=== PATIENT | male | born 1940 | race Caucasian/White ===

== ENCOUNTER → 2016-11-02 | Outpatient (CLI) | payer MEDICARE, OTHER ==
[~2016-11-02] MED LIST: AMLO5TAB2 PO; ASPI-1085 PO; ASPI-611 PO; CHOL100034 PO; DOCU-168 PO; DOXA8TAB PO; DOXA8TAB2 PO; INSU100V8 SQ; LISI-127 PO; LISI40TA4 PO; METF-200 PO; METF10002 PO; METO-482 PO; METO25TA41 PO; OXYC1TAB8 PO; POTA20TA87 PO; SIMV20TA89 PO; SIMV40TA2 PO; SITA100T12 PO; TRIA15OI6 TOP; WARF2.5T73 PO; WARF5TAB6 PO; WARF5TAB76 PO; [UNRECOGNIZED DRUG - CODE] PO
--- NOTE | 2016-11-02 10:38 | DI ---
Indication: ITS.REASON: R60.0 LOCALIZED EDEMA PROCEDURE: US VENOUS DUPLEX, LOWER EXT RT: Encounter: Initial Comparison: January 13, 2015 Technique: Color Doppler duplex and grayscale sonographic imaging of the right lower extremity was performed. Findings: There is no evidence for acute deep venous thrombosis in the right thigh. Specifically, serial graded compression was performed from the inguinal ligament to the popliteal bifurcation, on the right thigh, demonstrating appropriate compressibility of the deep venous system. In addition, color and pulsed Doppler demonstrate appropriate spontaneous flow, variation with respiration, and augmentation with calf compression. At the ankle, normal flow is identified in the posterior tibial veins; these vessels are also normal in caliber. Impression: No evidence of acute DVT in the right lower limb. .
== END ==
LOC: IMA 10:04
PROVIDERS: ATTEND Physician Assistant
DX: R60.0 Localized edema (principal)